=== PATIENT | male | born 1990 | race Caucasian/White ===

== ENCOUNTER 2016-11-29 03:46 | Emergency (ER) | payer OTHER ==
--- NOTE | ~2016-11-29 | CR109 ---
[facility] A Service of [facility] & [facility] RADIOLOGY TEXT RESULTS PATIENT: GORDON QUIJANO LOCATION: SED : 86 UNIT #: [id number] AGE: [address]: Ayush Goddard MD SEX: M ORDER DR: [id number] [place] [id number] P MR#: [id number] Acc #: [id number] NAME: GORDON QUIJANO : 1990 SEX: M STUDY DATE/TIME: 11/29/2016 3:01 UNIT: SED ROOM: STUDY DESCRIPTION: CR Finger 2 View 2nd Rt Attending Physician: Ayush Goddard M.D. Ordering Physician: Ayush Goddard M.D. MEDICAL IMAGING REPORT This report is preliminary unless electronic signature is present. EXAM Right index finger series 11/29/2016 HISTORY 26-year-old male in the ED with pain and laceration after finger injury. Struck finger with hammer tonight prior to arrival. TECHNIQUE 3-view right index finger series. FINDINGS The exam shows comminuted fracture of the second distal phalanx that is mildly displaced distally. Proximal extension to the articular surface of the DIP joint. Adjacent soft tissue swelling and laceration. No visible radiopaque soft tissue foreign body. Remainder of the examination is negative. IMPRESSION Comminuted second distal phalanx fracture. Dictated by... David Washburn M.D. THIS IS AN ELECTRONICALLY VERIFIED REPORT David Washburn M.D. at 11/29/2016 5:57 AM TAMMY/starla TD: 11/29/2016 03:41 JOB #: [id number] MEDICAL IMAGING REPORT Page 1 of 1
[~2016-11-29 03:46] MED LIST: PRILOSEC
== END 2016-11-29 05:04 ==
LOC: SED 03:46
DX: S67.190A Crushing injury of right index finger, initial encounter (principal); S62.630B Displaced fracture of distal phalanx of right index finger, initial encounter for open fracture; K21.9 Gastro-esophageal reflux disease without esophagitis; F17.210 Nicotine dependence, cigarettes, uncomplicated; W23.0XXA Caught, crushed, jammed, or pinched between moving objects, initial encounter; Y93.89 Activity, other specified; Y92.69 Other specified industrial and construction area as the place of occurrence of the external cause; Y99.0 Civilian activity done for income or pay
CPT/HCPCS: 73140; 90715; 99285